=== PATIENT | female | born 1935 | race Caucasian/White ===

== ENCOUNTER 2024-08-20 12:51 | Inpatient (IN) | payer MEDICARE, SELFPAY ==
[2024-08-20] VITALS (28 sets, daily range): BP systolic 72–146; BP diastolic 40–76; PULSE 67–87; RESP 16–30; TEMP 36.3–36.7; O2SAT 93–100; BMI 28.5; BMI 27.8
--- NOTE | 2024-08-20 13:11 | EX.ED.DYSGE1 ---
HPI History of Present Illness Chief Complaint: Complaint Informant: patient and family Onset/Context/Timing Onset: Today Context: Gradual Onset Timing: Waxes and wanes Quality: Confused, difficulty talking Location: Generalized Worsened by: Nothing Relieved by: Nothing Narrative Narrative: Patient presents with confusion and recurrent urinary tract infections. Patient had an episode today where she had some difficulty talking. Daughter states that this was unusual for the patient. Daughter states the patient has been on several courses of antibiotics for frequent urinary tract infections. Daughter states that the patient was recently started on Macrobid 2 days ago. Daughter states that the patient has not been eating and drinking as much is normal. Daughter denies any fevers or chills. Daughter denies any vomiting. [facility] Medical History (Updated 08/20/24 @ 18:[address] Dewayne Thompson DO) Arthritis Osteoporosis Anemia Allergy/AdvReac Type Severity Reaction Status Date / Time No Known Allergies Allergy Verified 08/20/24 12:53 Surgical History (Updated 08/20/24 @ 15:[address] 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 Social History Smoking Status: Never smoker ROS ROS ED Constitutional Constitutional ED: Denies chills or fever(s) ENT ENT ED: Denies rhinorrhea or sore throat Cardiovascular Cardiovascular: Denies chest pain Respiratory/Chest Respiratory/Chest: Denies cough or dyspnea Gastrointestinal Gastrointestinal: Denies nausea or vomiting Musculoskeletal Musculoskeletal: Denies back pain or neck pain Neurologic Neurologic: Reports weakness; Denies headache(s) Allergic/Immunologic Allergic/Immunologic ED: Denies tongue swelling or urticaria EXAM Physical Exam Const Vital Signs: 08/20/24 12:53 08/20/24 12:56 08/20/24 14:56 Temperature 97.9 F 97.9 F 97.4 F L Temperature Source Oral Oral Temporal Pulse Rate 69 67 74 Respiratory Rate 18 16 18 Blood Pressure 141/76 H 141/76 H 114/60 Blood Pressure Mean 97 97 78 Pulse Ox 98 97 97 Oxygen Delivery Method Room Air Room Air Room Air 08/20/24 16:00 08/20/24 17:00 08/20/24 17:24 Temperature 98.1 F 97.6 F L Temperature Source Temporal Temporal Pulse Rate 75 81 79 Respiratory Rate 16 16 17 Blood Pressure 107/52 L 107/53 L 79/42 L Blood Pressure Mean 70 71 54 Pulse Ox 100 97 97 Oxygen Delivery Method Room Air Room Air Room Air 08/20/24 17:27 Temperature Temperature Source Pulse Rate 75 Respiratory Rate 17 Blood Pressure 92/40 L Blood Pressure Mean 57 Pulse Ox 97 Oxygen Delivery Method Room Air Positive well nourished and well developed General Appearance ED: well developed and NAD HEENT Reports moist mucous membranes Neck supple and no JVD Resp normal respiratory effort Auscultation: rales bilateral 1/3 way up Cardio regular rate and regular rhythm GI non-tender and non-distended Palpation: soft Neuro oriented x3, CN's II-XII intact bilaterally and no sensory deficits noted Sensorium / Orientation: alert Motor Exam: strength 5/5 throughout Psych mental status grossly normal MDM MDM MDM Narrative Medical decision making narrative: Differential diagnosis includes urinary tract infection, sepsis, congestive heart failure, pneumonia, cardiac dysrhythmia, cardiac ischemia, and viral illness. EKG will be obtained to assess for cardiac dysrhythmia and cardiac ischemia. Chest x-ray will be obtained to assess for pneumonia and congestive heart failure. CT scan of the brain will be obtained to assess for intracranial bleeding and stroke. CBC will be obtained to assess for leukocytosis and anemia. Basic metabolic profile will be obtained to assess for electrolyte abnormality and renal function. High-sensitivity troponin will be obtained to assess for cardiac ischemia. Serum lactate will be obtained to assess for sepsis. PT with INR and PTT will be obtained to assess for coagulopathy. BNP will be obtained to assess for congestive heart failure. Urinalysis will be obtained to assess for urinary tract infection. Blood cultures will be obtained to assess for sepsis. Urine culture will be obtained to assess for urinary tract infection. COVID-19, influenza, and RSV PCR will be obtained to assess for viral infection. Lab Data Attestation: I reviewed the patient's lab results. Lab results narrative: CBC was reviewed. There is a leukocytosis of 25.5. Hemoglobin was 8.3 and hematocrit was 26.2. Platelets were 500. Basic metabolic profile was reviewed. Creatinine was slightly elevated at 1.29. Sodium was slightly low at 129. PT was INR and PTT were reviewed. Pro time was 16.8 and INR is 1.4. PTT was 24.7. Serum lactate was reviewed and was normal at 1.2. Urinalysis was reviewed. There is turbid brown urine with specific arrival 1.010. There were positive nitrates. Leukocyte esterase was 500. Occult blood was 250. There were greater than 100 white blood cells and 5-10 red blood cells. There is 3+ bacteria. BNP was reviewed and was elevated at 311.4. COVID-19 PCR was reviewed and was negative. Influenza PCR was reviewed and was negative for influenza A and influenza B. RSV PCR was reviewed and was negative. Labs: Laboratory Results - last 24 hr 08/20/24 08/20/24 08/20/24 15:05 15:50 16:35 WBC 25.5 H RBC 2.92 L Hgb 8.3 L Hct 26.2 L MCV 89.7 MCH 28.4 MCHC 31.7 L RDW Std Deviation 48.0 H RDW Coeff of Tiffani 14.8 H Plt Count 500 H MPV 9.5 Immature Gran % (Auto) 0.900 Neut % (Auto) 94.9 H Lymph % (Auto) 1.8 L [place] % (Auto) 0.9 Eos % (Auto) 1.2 Baso % (Auto) 0.3 Absolute Neuts (auto) 24.2 H Absolute Lymphs (auto) 0.46 L Nucleated RBC % 0 Differential Comment Platelet Estimate MOD INC Hypochromasia 1+ Anisocytosis 1+ PT 16.8 H INR 1.4 APTT 24.7 Sodium 129 L Potassium 4.3 Chloride 99 Carbon Dioxide 23.0 Anion Gap 8 BUN 17 Creatinine 1.29 H Estim Creat Clear Calc 27.80 Est GFR (MDRD) Af Amer 50 L Est GFR (MDRD) Non-Af 41 L BUN/Creatinine Ratio 13.2 Glucose 93 Lactic Acid 1.2 Calcium 8.7 Troponin I High Sens 14 B-Natriuretic Peptide 311.4 H Urine Color Brown Urine Clarity Turbid Urine pH 6.0 Ur Specific [place] 1.010 Urine Protein 100 H Urine Glucose (UA) Normal Urine Ketones 5 H Urine Occult Blood 250 H Urine Nitrite Positive H Urine Bilirubin Negative Urine Urobilinogen 1 H Ur Leukocyte Esterase 500 H Urine RBC 5-10 SEEN Urine WBC >100 SEEN Ur Squamous Epith Cells 5-10 SEEN Ur Renal Epithelial Cell 0-5 SEEN Urine Bacteria 3+ Urine Mucus 0 SEEN Radiography Chest X-Ray - ED: 2 View, Read by ED Physician, Read by Radiologist and CHF Diagnostic Testing: Clinical Impression(s) from Imaging Studies Brain CT 08/20/24 14:02 IMPRESSION: Chronic involutional changes of the brain. Electronically Signed: Tim White MD at 15:35 EST , Chest X-Ray 08/20/24 15:20 IMPRESSION: Findings suggestive of a CHF with bibasilar atelectasis worse on the left side. Electronically Signed: Tim White MD at 15:35 EST , Wrist X-Ray 08/20/24 16:14 IMPRESSION: Degenerative changes. Possible old avulsion injury of the ulnar styloid. Electronically Signed: José Antonio Calero DO at 16:32 EST , PA and lateral chest x-ray was obtained. There are 2 views. On my independent interpretation, lung rivas show evidence of congestive heart failure with bibasilar atelectasis. There is normal cardiac silhouette. Bony thorax is normal. Radiologist also interpreted the x-ray and agrees. CT scan of the brain was obtained. There is no acute intracranial abnormality. There are chronic involutional changes noted. This was interpreted by the radiologist and was also independently reviewed by myself. X-rays of the left wrist were obtained. There are 3 views. On my independent interpretation, there are some degenerative changes. There is no acute fracture. There is a possible old avulsion injury of the ulnar styloid. Radiologist also interpreted the x-rays and agrees. EKG Initial EKG: Attestation: I personally reviewed and interpreted this EKG as follows: Interpretation: Sinus Rhythm (68) and No Acute Injury Pattern Comments: EKG was obtained. On my independent interpretation, it showed a normal sinus rhythm with a rate of 68. AL interval, QRS interval, and QTc intervals were all normal. [place] was normal. There are no acute ST or T wave changes. Prior EKG tracings: not available for review Prior: No Prior Management Discussion w/another healthcare provider: Hospitalist Treatment and Re-Evaluation :: Patient was given a dose of Lasix here. Patient was started on Rocephin. After the patient received Rocephin, her blood pressure dropped. This improves after placing the patient in Trendelenburg position. Because of the elevated BNP and congestive heart failure on chest x-ray, IV fluids were withheld at this time. Case was discussed with the hospitalist. She will admit the patient to ICU. Patient and family understood and were agreeable with the plan. All questions were answered. 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
--- NOTE | 2024-08-20 14:02 | CT_ITS ---
STUDY: CT BRAIN WITHOUT CONTRAST REASON FOR EXAM: Female, 89 years old. Confusion RADIATION DOSAGE (If Supplied By Facility): CTDIvol = ( 44.99 ) mGy, DLP = ( 745.49 ) mGycm TECHNIQUE: Transaxial CT imaging of the brain was performed without administration of intravenous contrast material. Individualized dose optimization techniques were used for this CT. COMPARISON: No relevant priors. FINDINGS: Normal soft tissue structures. Normal calvarium. There is mild cerebral atrophy with widening of the extra-axial spaces and ventricular dilatation. There are areas of decreased attenuation within the white matter tracts of the supratentorial brain, consistent with microvascular disease changes. Normal basal ganglia and thalami. Normal brainstem. Normal cerebellum. There is no intracranial hemorrhage. There are no findings of an acute ischemic infarction. Minimal degree of mucosal thickening of the anterior aspect of the right ethmoid sinus. CT/Brain/Head without Contrast IMPRESSION: Chronic involutional changes of the brain. Electronically Signed: Tim White MD at 15:35 EST ,
--- NOTE | 2024-08-20 14:05 | EKG12_ITS ---
Test Reason : Blood Pressure : */* mmHG Vent. Rate : 68 BPM Atrial Rate : 68 BPM P-R Int : 138 ms QRS Dur : 84 ms QT Int : 430 ms P-R-T Axes : 23 0 9 degrees QTcB Int : 457 ms Normal sinus rhythm Normal ECG Confirmed by EMMANUEL RIVERA, SONDRA ([id number]), editor trade journal CARMELITA ROJAS ([id number]) on 08/21/2024 8:18:16 AM Referred By: Confirmed By: SONDRA BENITEZ MD
--- NOTE | 2024-08-20 15:20 | RAD_ITS ---
STUDY: X-RAY CHEST REASON FOR EXAM: Female, 89 years old. Dyspnea TECHNIQUE: AP and lateral views of the chest. COMPARISON: None. FINDINGS: EKG electrodes are seen. Findings suggest thoracic congestion and CHF with bibasilar atelectasis more prominent at the left lung base. Blunting of both costophrenic angles. There is mild cardiac enlargement. Normal mediastinum and [place]. Normal visualized pulmonary arteries. There is atherosclerotic tortuosity of the aortic arch and descending thoracic aorta. There are diffuse degenerative changes of the visualized thoracic spine. Status post right shoulder replacement. Osteoarthritis of the left shoulder. There is no demonstrated abnormality of the visualized soft tissue structures of the upper abdomen. RAD/Chest PA and Lateral IMPRESSION: Findings suggestive of a CHF with bibasilar atelectasis worse on the left side. Electronically Signed: Tim White MD at 15:35 EST ,
[2024-08-20 15:25] LABS: International Normalized Ratio 1.4; Prothrombin Time (Protime)PT. 16.8 SECONDS (11.7-14.9)
[2024-08-20 15:26] LABS: Partial Thromboplast Time 24.7 Seconds (24.1-36.2)
[2024-08-20 15:34] LABS: Anion Gap 8 (5-15); BUN 17 mg/dL (7-18); BUN/Creat Ratio 13.2 RATIO (10-20); Calcium,Total 8.7 mg/dL (8.5-10.1); Chloride 99 mmol/L (98-107); Creatinine, Serum 1.29 mg/dL (0.55-1.02); EST Glomerular Filtration Rate 41 mL/min (>60); Est Glom Filt Rate - Afr Amer 50 mL/min (>60); Glucose 93 mg/dL (74-106); Potassium 4.3 mmol/L (3.5-5.1); Sodium Level 129 mmol/L (136-145); Troponin-I HS 14 pg/mL (3.0-54.0)
[2024-08-20 15:56] LABS: Mucous, Urine 0 SEEN /hpf (<or=2+)
[2024-08-20 16:04] LABS: Lactic Acid 1.2 mmol/L (0.4-1.9)
--- NOTE | 2024-08-20 16:08 | ED.RN ---
Dr. Thompson notified that family requests X-ray of left wrist. We were only able to place a indwelling oh catheter d/t unsuccessful straight cath attempts.
--- NOTE | 2024-08-20 16:08 | ED.RN ---
lab coming to draw 2nd set of blood cultures
--- NOTE | 2024-08-20 16:14 | RAD_ITS ---
INDICATION: Injury/Pain EXAMINATION/TECHNIQUE: X-RAY - LEFT XR Wrist Min 3 Views 3 VIEWS COMPARISON: FINDINGS: SOFT TISSUES: No soft tissue swelling or gas. Chondrocalcinosis distal to the ulna. No radiopaque foreign body. Vascular calcifications. BONES/JOINTS: No acute fracture or subluxation.. Possible old avulsion of the ulnar styloid. Degenerative changes with joint space narrowing at the first carpal metacarpal articulation.. No sclerotic or destructive changes observed. RAD/Wrist min 3 Views IMPRESSION: Degenerative changes. Possible old avulsion injury of the ulnar styloid. Electronically Signed: José Antonio Calero DO at 16:32 EST Reading Location ID and State: [facility] / [place] Tel [phone], Service support ,
[2024-08-20] MEDS: Furosemide 40 MG/4 ML Vial IV (16:23)
[2024-08-20 16:35] LABS: Color, Urine Brown (Yellow); Glucose, Dipstick Normal (Normal); Ketone-Dipstick 5 mg/dl (Negative); Leukocyte Esterase-Dipstick 500 /ul (Negative); Nitrite-Dipstick Positive (Negative); Occult Blood-Urine 250 /ul (Negative); Protein-Dipstick 100 mg/dl (Negative); Urine Bilirubin Dipstick Negative (Negative); Urine Clarity Turbid (Clear); Urine Urobilinogen 1 mg/dl (Normal)
[2024-08-20 16:57] LABS: Anisocytosis 1+; Hypochromasia 1+; Platelet Estimate MOD INC (ADEQ)
[2024-08-20 16:57] LABS: White Blood Cells >100 SEEN /hpf (0-5)
[2024-08-20 16:58] LABS: Bacteria 3+ /hpf (None Seen)
[2024-08-20 16:59] LABS: Red Blood Cells-Urine 5-10 SEEN /hpf (0-5); Renal Epithelial Cells 0-5 SEEN /hpf (0-5); Squamous Epithelial Cells - UA 5-10 SEEN /hpf (5-10)
[2024-08-20 17:09] LABS: Absolute Lymphocyte Count 0.46 X10^3/uL (0.83-4.51); Absolute Neutrophil Count 24.2 X10^3/uL (2.0-7.7); Basophil# 0.07 X10^3/uL; Basophil% 0.3 % (0-1); Eosinophils% 1.2 % (0-5); Hematocrit 26.2 % (37-47); Hemoglobin 8.3 g/dL (12.0-15.0); Lymphocyte # 0.46 X10^3/ul (0.83-4.51); Lymphocyte % 1.8 % (19-41); Mean Corp Hgb Conc 31.7 g/dL (32-36); Mean Corpuscular Hgb 28.4 pg (27.0-32.0); Mean Corpuscular Volume 89.7 fL (81-99); Mean Platelet Vol. 9.5 fl (6.2-12.0); Monocyte# 0.23 X10^3/uL; Monocyte% 0.9 % (0-10); NRBC Flagged by Analyzer 0 % (0-5); Neutrophil # 24.18 X10^3/uL (2.7-7.7); Neutrophil % 94.9 % (47-70); POSITIVE COUNT YES; POSITIVE DIFFERENTIAL YES; Platelet Count 500 K/mm3 (150-450); RBC Distribution Width CV 14.8 % (11.6-14.6); Red Blood Count 2.92 M/mm3 (4.2-5.4); White Blood Count 25.5 K/mm3 (4.4-11.0)
[2024-08-20 17:10] LABS: Differential Indicated SCAN CRITERIA MET
[2024-08-20] MEDS: Ceftriaxone 1 GM/50 ML BAG IV (17:22)
--- NOTE | 2024-08-20 17:26 | ED.RN ---
place pt in partial trendelberg due to low bp. bp 92/40 after reposition
--- NOTE | 2024-08-20 17:42 | CT_ITS ---
STUDY: CT ABDOMEN AND PELVIS WITHOUT CONTRAST REASON FOR EXAM: Female, 89 years old. sepsis with uti RADIATION DOSAGE (If Supplied By Facility): CTDIvol = ( 14.74 ) mGy, DLP = ( 740.21 ) mGycm TECHNIQUE: Transaxial images were obtained from the dome of the diaphragm to the symphysis pubis without oral contrast, and without intravenous contrast. Sagittal and coronal images were reconstructed. Individualized dose optimization techniques were used for this CT. COMPARISON: None. FINDINGS: Mild left pleural effusion. Bibasilar interstitial prominence. The visualized portions of the heart are within normal limits. Normal liver. No visualization of the gallbladder. Mild prominence of the extrahepatic biliary system. Normal spleen. Normal pancreas. Normal bilateral adrenal glands. Normal right kidney. Normal left kidney. Hiatal hernia. Normal small intestine. Diverticulosis of the colon. There is wall thickening at the distal rectosigmoid colon with adjacent mesenteric edema/fluid and extraluminal collection suspected to the right of the rectum measuring 5.4 x 2.8 cm suggesting an abscess. The appendix is visualized and appears normal. Calcified abdominal aorta. Normal inferior vena cava. Normal retroperitoneum. Merrill catheter in the urinary bladder. : Olar-ureteral with the right ureter and colovesical fistula cannot be excluded. Mild presacral edema. Normal abdominal wall. Degenerative vertebral changes and scoliosis. Surgical fusion of L3-L5. L1 compression fracture. CT/Abdomen/Pelvis without Cont IMPRESSION: Hiatal hernia. Diverticulosis of the colon. There is wall thickening at the distal rectosigmoid colon with adjacent mesenteric edema/fluid and extraluminal collection suspected to the right of the rectum measuring 5.4 x 2.8 cm suggesting an abscess. Olar-ureteral with the right ureter and colovesical fistula cannot be excluded. Mild left pleural effusion. Bibasilar interstitial prominence. Electronically Signed: José Antonio Calero DO at 18:30 EST ,
[2024-08-20 17:43] LABS: BNP,B-Type NATRIURETIC PEPTIDE 311.4 pg/mL (0-100)
--- NOTE | 2024-08-20 17:51 | PCM.HP.STD ---
HPI - General General Date of Admission: 08/20/24 Date of Service: 08/20/24 Chief Complaint: Altered mental status HPI Narrative PEGGY JO, is a 89 F who presented to the emergency department [facility] on 08/20/2024 due to altered mentation. Patient is currently a resident at [facility] where she is currently residing. She has been having issues with recurrent urinary tract infections and was just started on Macrobid a couple days prior to presentation. Today her family noted that she was having some issues talking and seemed a bit confused which is unusual for her. Typically at baseline she is alert and oriented x 3. Family reported that she is not been eating and drinking as much is typical. Daughter stated she did not have any known fevers or chills and had not had any nausea vomiting or diarrhea. Patient is a DNR CCA with no intubation. She states her goal is to live until her grandson gets home from the on September 15 and after that would consider hospice at but at this time would like to pursue as aggressive of medical therapy as her CODE STATUS allows. Her grandson is Dr. Elder Bowen. Vital signs on presentation showed a temperature of 97.9, heart rate 69, blood pressure was initially 141/76 however after antibiotics her blood pressure dropped to 79/42, pulse ox is 98% on room air. I have no baseline labs previous for comparison. CBC showed a white count of 25.5 with a left shift having a 94.9% neutrophilia. Hemoglobin was 8.3, platelet count was 500,000, and coags showed a mildly elevated INR at 1.4, PTT of 24.7 and a PTT of 16.8. Chemistry panel showed a mild hyponatremia with a sodium of 129, creatinine was 1.29 and troponin was 14. BNP was 311.4. Urine was turbid and positive for nitrites and leuk esterase with greater than 100 white cells per high-power field and 3+ bacteria. CT of the brain showed only chronic volitional changes. Chest x-ray was suggestive of CHF or bilateral atelectasis left greater than right. At the time of admission I recommended a CT of the abdomen pelvis be pursued and this was performed stat however pending at the time of her being admitted to the intensive care unit. [facility] Medical History Arthritis Osteoporosis Anemia Home Medications ?Medication ?Instructions ?Recorded ?Last Taken ?Type acetaminophen 500 mg tablet 1,000 mg PO Q8H PRN PRN pain 1-5 08/20/24 Unknown History bisacodyl 10 mg rectal suppository 10 mg AK DAILY PRN constipation 08/20/24 Unknown History calcium 600 mg (as 1 tab PO BID health maintenance 08/20/24 Unknown History carbonate)-vitamin D3 5 mcg (200 unit) tablet (Calcium 600 + D(3)) cholecalciferol (vitamin D3) 25 25 mcg PO DAILY osteoporosis 08/20/24 Unknown History mcg (1,000 unit) tablet (Vitamin D3) clonazepam 0.5 mg tablet (Klonopin) 0.5 mg PO TID PRN anxiety 08/20/24 Unknown History cranberry fruit 450 mg tablet 450 mg PO DAILY urinary health 08/20/24 Unknown History (cranberry) escitalopram oxalate 5 mg tablet 5 mg PO DAILY 08/20/24 Unknown History (Lexapro) fenofibrate micronized 200 mg 200 mg PO DAILY 08/20/24 Unknown History capsule folic acid 1 mg tablet 1 mg PO DAILY anemia 08/20/24 Unknown History gabapentin 600 mg tablet 600 mg PO BID 08/20/24 Unknown History nitrofurantoin 100 mg PO BID UTI 08/20/24 Unknown History monohydrate/macrocrystals 100 mg capsule (Macrobid) omeprazole 20 mg capsule,delayed 20 mg PO DAILY 08/20/24 Unknown History release oxycodone 5 mg tablet 5 mg PO Q8H PRN PRN mild to 08/20/24 Unknown History moderate pain sennosides 8.6 mg-docusate sodium 1 tab-cap PO BID PRN constipation 08/20/24 Unknown History 50 mg tablet (Senna-Time S) trazodone 50 mg tablet 100 mg PO QHS insomnia 08/20/24 Unknown History Allergy/AdvReac Type Severity Reaction Status Date / Time No Known Allergies Allergy Verified 08/20/24 12:53 unable to obtain Surgical History 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 Silke Bettencourt DO) housing: long-term Smoking Status: Never smoker alcohol intake: never substance use type: does not use ROS Constitutional Constitutional: Reports fatigue and malaise; Denies anorexia, change in weight, chills, fever(s), night sweats, weakness or other Eyes Eyes: Denies blurry vision, change in eye color, change in vision, discharge from eye(s), double vision, erythema, eye pain, loss of vision or other ENT HEENT: Reports abnormal hearing and hearing loss; Denies dysphagia, ear pain, epistaxis, headache(s), nasal congestion, nasal discharge, post nasal drip, sinus pressure, sore throat or other Cardiovascular Cardiovascular: Denies chest pain, claudication, dyspnea on exertion, edema, lightheadedness, orthopnea, palpitations, paroxysmal nocturnal dyspnea, rapid heart rate, syncope or other Respiratory/Chest Respiratory/Chest: Denies cough, dyspnea, excessive phlegm production, hemoptysis, productive cough, shortness of breath at rest, shortness of breath with exertion, wheezing or other Gastrointestinal Gastrointestinal: Denies abdominal pain, coffee ground emesis, constipation, diarrhea, dyspepsia, hematemesis, hematochezia, loose stools, melena, nausea, vomiting or other Genitourinary Genitourinary: Reports dysuria and urinary frequency; Denies burning urination, difficulty urinating, hematuria, nocturia, urinary hesitancy, urinary incontinence, urinary urgency or other Musculoskeletal Musculoskeletal: Reports back pain and neck pain; Denies arthralgias, joint pain, joint stiffness, joint swelling, myalgias or other Neurologic Neurologic: Denies abnormal gait, abnormal speech, confusion, disequilibrium, dizziness, focal weakness, headache(s), numbness, paresthesias, seizure-like activity, seizures, syncope, tingling, tremor(s) or other Psychiatric Psychiatric: Reports anxiety and depression; Denies homicidal ideation, suicidal ideation or other Endocrine Endocrinology: Denies change in body appearance, cold intolerance, excessive sweating, heat intolerance, polydipsia, polyuria or other Hematologic/Lymphatic Hematologic/Lymphatic: Denies anemia, easy bleeding, easy bruising, lymphadenopathy or other Allergic/Immunologic Allergic/Immunologic: Denies rhinitis, hives, eczemia, asthma or other Vital Signs Vital Signs Vital Signs: 08/20/24 12:53 08/20/24 12:56 08/20/24 14:56 Temperature 97.9 F 97.9 F 97.4 F L Temperature Source Oral Oral Temporal Pulse Rate 69 67 74 Respiratory Rate 18 16 18 Blood Pressure 141/76 H 141/76 H 114/60 Blood Pressure Mean 97 97 78 Pulse Ox 98 97 97 Oxygen Delivery Method Room Air Room Air Room Air 08/20/24 16:00 08/20/24 17:00 08/20/24 17:24 Temperature 98.1 F 97.6 F L Temperature Source Temporal Temporal Pulse Rate 75 81 79 Respiratory Rate 16 16 17 Blood Pressure 107/52 L 107/53 L 79/42 L Blood Pressure Mean 70 71 54 Pulse Ox 100 97 97 Oxygen Delivery Method Room Air Room Air Room Air 08/20/24 17:27 Temperature Temperature Source Pulse Rate 75 Respiratory Rate 17 Blood Pressure 92/40 L Blood Pressure Mean 57 Pulse Ox 97 Oxygen Delivery Method Room Air Weight Weight: 70.9 kg Body Mass Index (BMI) 28.5 Physical Exam Const alert, no apparent distress and well nourished; Negative for average body habitus or healthy appearing Constitutional Narrative: Elderly, debilitated, white female, lying in bed oriented to self and place but not time consistently, appears ill General Appearance: cooperative HEENT normocephalic and head/scalp atraumatic HEENT Narrative: Dentition is poor, mucous membranes are dry, Mallampati is 2, no thrush, large seborrheic keratosis on nose Eyes PERRL Resp normal respiratory effort, no retractions, no use of accessory muscles and clear to auscultation bilaterally Auscultation: crackles bilateral (B crackles); Negative for rhonchi or wheezes Cardio regular rate, regular rhythm, S1 normal heart sound, S2 normal heart sound, no murmurs, no rub, no gallops and no clicks GI normal to inspection, nondistended, normoactive bowel sounds, soft to palpation and non-tender Extremity Extremity Narrative: Pedal pulses 2+, Radial pulses 2+, no cyanosis/clubbing Neuro moves all extremities and no focal motor deficits Sensorium / Orientation: awake, alert, oriented to person and oriented to place Speech: speech normal Psych affect normal Psych Narrative: calm and appears comfortable Results Lab / Micro Data 08/20/24 16:35 08/20/24 15:05 Labs: Laboratory Results - last 24 hr 08/20/24 15:05: PT 16.8 H, INR 1.4, APTT 24.7, Sodium 129 L, Potassium 4.3, Chloride 99, Carbon Dioxide 23.0, Anion Gap 8, BUN 17, Creatinine 1.29 H, Estim Creat Clear Calc 27.80, Est GFR (MDRD) Af Amer 50 L, Est GFR (MDRD) Non-Af 41 L, BUN/Creatinine Ratio 13.2, Glucose 93, Lactic Acid 1.2, Calcium 8.7, Troponin I High Sens 14 08/20/24 15:50: Urine Color Brown, Urine Clarity Turbid, Urine pH 6.0, Ur Specific Hamilton 1.010, Urine Protein 100 H, Urine Glucose (UA) Normal, Urine Ketones 5 H, Urine Occult Blood 250 H, Urine Nitrite Positive H, Urine Bilirubin Negative, Urine Urobilinogen 1 H, Ur Leukocyte Esterase 500 H, Urine RBC 5-10 SEEN, Urine WBC >100 SEEN, Ur Squamous Epith Cells 5-10 SEEN, Ur Renal Epithelial Cell 0-5 SEEN, Urine Bacteria 3+, Urine Mucus 0 SEEN 08/20/24 16:35: WBC 25.5 H, RBC 2.92 L, Hgb 8.3 L, Hct 26.2 L, MCV 89.7, MCH 28.4, MCHC 31.7 L, RDW Std Deviation 48.0 H, RDW Coeff of Tiffani 14.8 H, Plt Count 500 H, MPV 9.5, Immature Gran % (Auto) 0.900, Neut % (Auto) 94.9 H, Lymph % (Auto) 1.8 L, Jasper % (Auto) 0.9, Eos % (Auto) 1.2, Baso % (Auto) 0.3, Absolute Neuts (auto) 24.2 H, Absolute Lymphs (auto) 0.46 L, Nucleated RBC % 0, Differential Comment , Platelet Estimate MOD INC, Hypochromasia 1+, Anisocytosis 1+, B-Natriuretic Peptide 311.4 H Micro: Microbiology 08/20/24 14:21 Mucosa - Nose SARS-CoV-2, Influenza & RSV (PCR) - Final Imaging Radiology Impression Brain CT 08/20/24 14:02 IMPRESSION: Chronic involutional changes of the brain. Electronically Signed: Tim White MD at 15:35 EST , Chest X-Ray 08/20/24 15:20 IMPRESSION: Findings suggestive of a CHF with bibasilar atelectasis worse on the left side. Electronically Signed: Tim White MD at 15:35 EST , Wrist X-Ray 08/20/24 16:14 IMPRESSION: Degenerative changes. Possible old avulsion injury of the ulnar styloid. Electronically Signed: José Antonio Calero DO at 16:32 EST , Assessment & Plan Assessment/Plan (1) Toxic metabolic encephalopathy: (2) Elevated brain natriuretic peptide (BNP) level: (3) Elevated serum creatinine: (4) Leukocytosis: (5) Anemia: (6) Thrombocytosis: (7) Abnormal urinalysis: (8) Septic shock: PLAN: Plan Septic shock secondary to urinary tract infection -Patient had refractory hypotension to fluid resuscitation at 30 cc/kg body weight (2,500) -Levophed initiated at 5 mcg/min -Right internal jugular catheter placed for administration of pressors and antibiotics under sterile procedure -Blood and urine cultures are pending -CT of the abdomen pelvis without contrast showed wall thickening at the distal rectosigmoid colon with adjacent mesenteric edema and fluid with extraluminal collection to the right of the rectum measuring 5.4 x 2.8 cm suggestive of an abscess along with potential Coloureteral/colovesical fistula, mild left pleural effusion and bibasilar interstitial prominence -Discussed case with general surgery here and they feel that is anticipated drain should be placed -No IR available here so will transfer to tertiary center--> discussed with family and they prefer [facility] -Will continue broad-spectrum antibiotics with Zosyn -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 as her only goal is to live until September 15 when her grandson gets home from the but source control needs to be pursued at this time as she is not quite ready for hospice -Critical care medicine/pulmonary medicine was consulted in case patient does not obtain a bed today Toxic/metabolic encephalopathy -Mild confusion per family however if she does seem better per family after getting to the emergency department and having some fluids -Likely related to the above -CT of the brain shows no acute findings -Monitor clinically Leukocytosis -Significant with a white count of 25.5 on presentation -Continue IV antibiotics next-cultures pending as above -Repeat CBC in a.m. Abnormal urinalysis -Highly suspect UTI -Urine looks purulent -Antibiotics as above Thrombocytosis -Highly suspect acute phase reactant -Should improve with source control and antibiotic therapy Elevated serum creatinine -Baseline is unknown -Creatinine on presentation was 1.29 -Patient was treated with IV fluids as noted above -Repeat lab in a.m. -Avoid nephrotoxins as able -With age actual creatinine clearance is quite low Hyponatremia -129 on presentation -baseline is unknown -Patient does appear to be volume depleted -No further workup at this time but if remains persistent may need to pursue further hyponatremia workup Elevated BNP -Does not appear to be in acute heart failure however bases do have crackles--> the patient remained stable on room air even after fluid administration -Suspect related to sepsis -Will check echocardiogram -Would avoid diuretics due to hypotension at this time -Bases of lungs on CT of the abdomen shows small right pleural effusion which is minimal on my review and some atelectasis/fibrosis appearing changes Recurrent UTI -See above Anemia -Documented history of anemia however baseline unclear -Current hemoglobin is 8.3 -Will monitor and expect some drop with hemodilution with aggressive IV fluid administration for volume resuscitation -Repeat CBC in a.m. GERD -Continue PPI Hyperlipidemia -Hold fenofibrate -Would likely discontinue at discharge given overall goals of care long-term Osteoarthritis -As needed Tylenol available Neuropathy -Hold gabapentin for now with renal dysfunction and altered mentation Anxiety/depression/insomnia -Continue Lexapro -Hold as needed Klonopin -Okay for as needed trazodone DVT prophylaxis -Subcu heparin Q8 CODE STATUS -DNR CCA with no intubation Findings on CT scan were discussed with Dr. Bowen (her grandson) and her son (POA) and they desire transfer to [facility]. Discussed case with transfer center and awaiting callback from MICU attending--> Dr. Escoabr. Images were pushed to [facility]. Critical care time greater than 36 minutes without procedures Sepsis Attestation Sepsis Alert: Yes Sepsis Attestation: Agree w/Sepsis Date exam was performed: 08/20/24 Time exam was performed: 17:52 Possible Source of Sepsis: Genitourinary Sepsis Organ Dysfunction Criteria Present: SBP < 90 mmHg or MAP < 65 mmHg and New/Unexplained change in mental status Supportive Findings: Per Sep 1 guidelines pt meets SIRS criteria and source Fluid Resuscitation Fluid resuscitation indicated?: Yes Fluid Resuscitation ordered: 30 ml/kg fluid bolus ordered Amount of fluid ordered: 2,500 Sepsis Note Date exam was performed: 08/20/24 Time exam was performed: 22:32 Sepsis Attestation: Sepsis re-evaluation was performed Response to fluids: Vasopressors started Charges/Coding Procedures Hospitalists Procedures: 37224 Critical Care 1st Hr
[2024-08-20] MEDS: 0.9% Normal Saline (1000mL) 1,000 ML 1500 ML IV (18:30)
--- NOTE | 2024-08-20 19:40 | CASEMGMT ---
Social Work Reason for consult: ICU admission/from residential Referral source: ED registration Notified by ED registration staff that patient is being admitted to ICU. Met with patient, son Konstantin, and a close family friend in the ED. Introduced to self and social work role. Patient talked minimally, reporting to feel better now that not being poked and prodded. Konstantin shared that patient has been at [facility] for about 3 weeks now. Previously had been living alone in own home with family checking in on patient, and looking after as able. Patient developed some confusion and was taken to [place] for treatment then admitted to [place]. Patient was then placed at [facility]. Patient's [id number] Twyla (Konstantin's ) is a nurse at [facility], so is able to look after patient there. The plan is for patient to return to [facility] when medically stable. Son declines any type of residential list, as wants patient to return where Twyla works. This tech writer expressed understanding and validation of comfort in knowing that family can be close by and look after the patient frequently. terminologist plan is to remain at [facility]. Family is working on Medicaid for this patient, though Konstantin believes patient is reportedly still receiving skilled care under Medicare benefit. Konstantin reports patient's grandson is to be home for a visit from the [employer] around [place], and it has been patient's goal to hang on until that time, in order to see her grandson at least one more time. Supportive listening and encouragement given. Konstantin reports to be the POAHC for patient and that patient has a DNR, which believes was sent from the residential. Konstantin reports patient is , had 5 children, with Konstantin being the only child still living. If there is no POAHC able to be produced, Konstantin would be next in line for decision making. Plan: SW to follow and assist as indicated. Anticipate return to [facility] and rehab, skilled level of care. -JAJA Lemos
[2024-08-20] MEDS: 0.9% Normal Saline (1000mL) 1,000 ML 999 ML IV (20:04)
--- NOTE | 2024-08-20 20:12 | NURSING ---
2500 mL sepsis fluids ordered total per Dr. Bettencourt. Orders duplicated accidentally in transfer orders. 1500 mL given in ED, one more liter started after arrival to unit to fulfill the total 2.5 L.
[2024-08-20] MEDS: Norepinephrine 8 MG in 0.9% Normal Saline (250mL Bag) 242 ML 9.4 MG CONT INF (20:53)
[2024-08-20] MEDS: Piperacil/Tazobactam 3.375 GM in 0.9% Normal Saline (50mL MB+) 50 ML IV (21:25)
--- NOTE | 2024-08-20 22:12 | PCM.HOSP.N ---
Hospitalist Note Central Venous Catheter Indication: Hypotension secondary to septic shock Consent was obtained from: Patient and family A time-out was completed verifying correct patient, procedure, site, positioning, and special equipment if applicable. The patient was placed in a dependent position appropriate for central line placement based on the vein to be cannulated. The patient's right neck was prepped and draped in a sterile fashion. 1% lidocaine was used to anesthetize the surrounding skin area. A triple-lumen catheter was introduced into the right internal jugular vein using the Seldinger technique and under ultrasound guidance. The catheter was threaded smoothly over the guidewire and appropriate blood return was obtained. Each lumen of the catheter was evacuated of air and flushed with sterile saline. The catheter was then sutured in place to the skin and a sterile dressing applied. Chest x-ray to confirm appropriate positioning is pending. ULTRASOUND GUIDANCE STATEMENT (Vascular Access): I performed ultrasound image acquisition and interpretation for needle placement during the procedure. The vessel was identified and found to be free of thrombosis by compression technique. A safe point of entry was marked at the skin in an angle for axis was determined. The needle was guided by obtaining free-flowing fluid and by real-time visualization. Procedures Hospitalists Procedures: 20619 US Guide Vascular Access
[2024-08-20] MEDS: Heparin Injection (Vial) 5,000 UNIT/ML VIAL 5000 UNIT SC (22:15)
[2024-08-20] MEDS: traZODone 100 MG Tablet PO (22:15)
--- NOTE | 2024-08-20 22:15 | RAD_ITS ---
INDICATION: line placement EXAMINATION/TECHNIQUE: X-RAY - XR Chest 1 View COMPARISON: FINDINGS: LINES/DEVICES: Right venous line with tip at the right atrial level. LUNGS: Bibasilar infiltrates and mild effusions.. No pneumothorax. MEDIASTINUM AND CARDIOVASCULAR STRUCTURES: Cardiac silhouette not enlarged. Central airways and mediastinal contour are unremarkable. BONES AND SOFT TISSUES: There is a right shoulder prosthesis. Degenerative changes with deformity of the left shoulder. Degenerative vertebral changes. Hiatal hernia. RAD/CXR for Line Placement IMPRESSION: Bibasilar infiltrates and mild effusions.. Hiatal hernia. Electronically Signed: José Antonio Calero DO at 23:54 EST Reading Location ID and State: [facility] / [place] Tel [phone], Service support ,
--- NOTE | 2024-08-20 22:32 | NURSING ---
Dr. Bettencourt at bedside to place central line. Pt gave consent and signed form. Left IJ triple lumen placed. Chest xray ordered.
--- NOTE | 2024-08-20 22:48 | EX.PCM.CON.S ---
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 Additionally, adjacent to the rectum there is a 5 cm pelvic abscess. Patient presents with evidence of septic shock now requiring initiation of vasopressors to support her blood pressure. Given patient's frail state and advanced age I do not believe patient is a surgical candidate and recommended strong consideration of conservative measures for obtaining source control; specifically cited my review of the CT imaging which shows a 5 cm pelvic abscess that would appear to be accessible from a transgluteal approach and a window between the coccyx and the inferior gluteal artery. This impression was communicated to hospitalist service and they have sought urgent transfer to a tertiary facility with IR capabilities as our interventional radiologist is due to be out of the hospital tomorrow. It is reported that patient was accepted in transfer is pending. Otherwise agree with conservative management measures already in place including administration of IV antibiotic therapy. George Dozier MD General Surgery Endocrine Surgery Pager: [facility] [address] [place] [address], [facility], [address] [place] [address] Office: 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 Patient is evaluated without any family around and is a poor historian, but review of the EHR suggest that her presentation was based on some altered mental status. I have been consulted to evaluate patient for follow-up of ER investigation CT imaging that showed evidence of a colovesical fistula as well as a 5 cm pelvic abscess adjacent to the rectum to its right. It is also reported that patient has had sagging blood pressures today and is required central venous access for initiation of vasopressor therapy. [facility], LAT[facility] Medical History (Updated 08/20/24 @ 22:[address] George Dozier MD) Arthritis Osteoporosis Anemia Home Medications ?Medication ?Instructions ?Recorded ?Last Taken ?Type acetaminophen 500 mg tablet 1,000 mg PO Q8H PRN PRN pain 1-5 11/19/24 Unknown History bisacodyl 10 mg rectal suppository 10 mg AR DAILY PRN constipation 08/20/24 Unknown History calcium 600 mg (as 1 tab PO BID health maintenance 08/20/24 Unknown History carbonate)-vitamin D3 5 mcg (200 unit) tablet (Calcium 600 + D(3)) cholecalciferol (vitamin D3) 25 25 mcg PO DAILY osteoporosis 08/20/24 Unknown History mcg (1,000 unit) tablet (Vitamin D3) clonazepam 0.5 mg tablet (Klonopin) 0.5 mg PO TID PRN anxiety 08/20/24 Unknown History cranberry fruit 450 mg tablet 450 mg PO DAILY urinary health 08/20/24 Unknown History (cranberry) escitalopram oxalate 5 mg tablet 5 mg PO DAILY 08/20/24 Unknown History (Lexapro) fenofibrate micronized 200 mg 200 mg PO DAILY 08/20/24 Unknown History capsule folic acid 1 mg tablet 1 mg PO DAILY anemia 08/20/24 Unknown History gabapentin 600 mg tablet 600 mg PO BID 08/20/24 Unknown History nitrofurantoin 100 mg PO BID UTI 08/20/24 Unknown History monohydrate/macrocrystals 100 mg capsule (Macrobid) omeprazole 20 mg capsule,delayed 20 mg PO DAILY 08/20/24 Unknown History release oxycodone 5 mg tablet 5 mg PO Q8H PRN PRN mild to 08/20/24 Unknown History moderate pain sennosides 8.6 mg-docusate sodium 1 tab-cap PO BID PRN constipation 08/20/24 Unknown History 50 mg tablet (Senna-Time S) trazodone 50 mg tablet 100 mg PO QHS insomnia 08/20/24 Unknown History Allergy/AdvReac Type Severity Reaction Status Date / Time No Known Allergies Allergy Verified 08/20/24 12:53 Surgical History (Updated 08/20/24 @ 15:[address] 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 She does repeatedly make mention of poking a hole in it but does not directly answer questions despite rephrasing and repeating General Appearance: Negative for cooperative Orientation / Consciousness: confused Resp normal respiratory effort GI GI Narrative: Nondistended, soft, no apparent tenderness with palpation of any abdominal quadrant Bladder / Kidney Exam: catheter in place urethral (With brown discoloration) Lab / Micro Data 08/20/24 16:35 08/20/24 15:05 Labs: Laboratory Results - last 24 hr 08/20/24 15:05: PT 16.8 H, INR 1.4, APTT 24.7, Sodium 129 L, Potassium 4.3, Chloride 99, Carbon Dioxide 23.0, Anion Gap 8, BUN 17, Creatinine 1.29 H, Estim Creat Clear Calc 27.80, Est GFR (MDRD) Af Amer 50 L, Est GFR (MDRD) Non-Af 41 L, BUN/Creatinine Ratio 13.2, Glucose 93, Lactic Acid 1.2, Calcium 8.7, Troponin I High Sens 14 08/20/24 15:50: Urine Color Brown, Urine Clarity Turbid, Urine pH 6.0, Ur Specific [place] 1.010, Urine Protein 100 H, Urine Glucose (UA) Normal, Urine Ketones 5 H, Urine Occult Blood 250 H, Urine Nitrite Positive H, Urine Bilirubin Negative, Urine Urobilinogen 1 H, Ur Leukocyte Esterase 500 H, Urine RBC 5-10 SEEN, Urine WBC >100 SEEN, Ur Squamous Epith Cells 5-10 SEEN, Ur Renal Epithelial Cell 0-5 SEEN, Urine Bacteria 3+, Urine Mucus 0 SEEN 08/20/24 16:35: WBC 25.5 H, RBC 2.92 L, Hgb 8.3 L, Hct 26.2 L, MCV 89.7, MCH 28.4, MCHC 31.7 L, RDW Std Deviation 48.0 H, RDW Coeff of Tiffani 14.8 H, Plt Count 500 H, MPV 9.5, Immature Gran % (Auto) 0.900, Neut % (Auto) 94.9 H, Lymph % (Auto) 1.8 L, [place] % (Auto) 0.9, Eos % (Auto) 1.2, Baso % (Auto) 0.3, Absolute Neuts (auto) 24.2 H, Absolute Lymphs (auto) 0.46 L, Nucleated RBC % 0, Differential Comment , Platelet Estimate MOD INC, Hypochromasia 1+, Anisocytosis 1+, B-Natriuretic Peptide 311.4 H Micro: Microbiology 08/20/24 14:21 Mucosa - Nose SARS-CoV-2, Influenza & RSV (PCR) - Final Imaging Radiology Impression Brain CT 08/20/24 14:02 IMPRESSION: Chronic involutional changes of the brain. Electronically Signed: Tim White MD at 15:35 EST , Chest X-Ray 08/20/24 15:20 IMPRESSION: Findings suggestive of a CHF with bibasilar atelectasis worse on the left side. Electronically Signed: Tim White MD at 15:35 EST , Wrist X-Ray 08/20/24 16:14 IMPRESSION: Degenerative changes. Possible old avulsion injury of the ulnar styloid. Electronically Signed: José Antonio Calero DO at 16:32 EST , Abdomen/Pelvis CT 08/20/24 17:42 IMPRESSION: Hiatal hernia. Diverticulosis of the colon. There is wall thickening at the distal rectosigmoid colon with adjacent mesenteric edema/fluid and extraluminal collection suspected to the right of the rectum measuring 5.4 x 2.8 cm suggesting an abscess. [place]-ureteral with the right ureter and colovesical fistula cannot be excluded. Mild left pleural effusion. Bibasilar interstitial prominence. Electronically Signed: José Antonio Calero DO at 18:30 EST , Charges/Coding Visit Charges Inpatient E&M: 62251 Subs Hosp L2
--- NOTE | 2024-08-20 23:00 | PCM.DC.SUM ---
Providers Date of Admission: 08/20/24 Date of Discharge: 08/20/24 Primary Care Physician: Dr. Marco Segura MD Consultations 08/20/24 21:08 Consult: General Surgery Routine Consulting Provider: George Dozier Reason for Consult: abscess EMERGENT Consult: No MD Notified: Yes Date Notified: 08/20/24 Time Notified: 21:08 Method of Notification: Verbal Reason For Visit: SEPSIS 2/2 UTI Diagnosis Discharge Diagnosis (1) Toxic metabolic encephalopathy: Status: Acute Code(s): G92.8 - Other toxic encephalopathy (2) Elevated brain natriuretic peptide (BNP) level: Status: Acute Code(s): R79.89 - Other specified abnormal findings of blood chemistry (3) Elevated serum creatinine: Status: Acute Code(s): R79.89 - Other specified abnormal findings of blood chemistry (4) Leukocytosis: Status: Acute Code(s): D72.829 - Elevated white blood cell count, unspecified (5) Anemia: Status: Acute Code(s): D64.9 - Anemia, unspecified (6) Thrombocytosis: Status: Acute Code(s): D75.839 - Thrombocytosis, unspecified (7) Abnormal urinalysis: Status: Acute Code(s): R82.90 - Unspecified abnormal findings in urine (8) Septic shock: Status: Acute Code(s): A41.9 - Sepsis, unspecified organism; R65.21 - Severe sepsis with septic shock (9) Recurrent UTI: Status: Acute Code(s): N39.0 - Urinary tract infection, site not specified (10) Pelvic abscess in female: Status: Acute Code(s): N73.9 - Female pelvic inflammatory disease, unspecified Plan Septic shock secondary to urinary tract infection -Patient had refractory hypotension to fluid resuscitation at 30 cc/kg body weight (2,500) -Levophed initiated at 5 mcg/min -Right internal jugular catheter placed for administration of pressors and antibiotics under sterile procedure -Blood and urine cultures are pending -CT of the abdomen pelvis without contrast showed wall thickening at the distal rectosigmoid colon with adjacent mesenteric edema and fluid with extraluminal collection to the right of the rectum measuring 5.4 x 2.8 cm suggestive of an abscess along with potential Coloureteral/colovesical fistula, mild left pleural effusion and bibasilar interstitial prominence -Discussed case with general surgery here and they feel that is anticipated drain should be placed -No IR available here so will transfer to tertiary center--> discussed with family and they prefer [facility] -Will continue broad-spectrum antibiotics with Zosyn -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 as her only goal is to live until September 15 when her grandson gets home from the but source control needs to be pursued at this time as she is not quite ready for hospice -Critical care medicine/pulmonary medicine was consulted in case patient does not obtain a bed today Toxic/metabolic encephalopathy -Mild confusion per family however if she does seem better per family after getting to the emergency department and having some fluids -Likely related to the above -CT of the brain shows no acute findings -Monitor clinically Leukocytosis -Significant with a white count of 25.5 on presentation -Continue IV antibiotics next-cultures pending as above -Repeat CBC in a.m. Abnormal urinalysis -Highly suspect UTI -Urine looks purulent -Antibiotics as above Thrombocytosis -Highly suspect acute phase reactant -Should improve with source control and antibiotic therapy Elevated serum creatinine -Baseline is unknown -Creatinine on presentation was 1.29 -Patient was treated with IV fluids as noted above -Repeat lab in a.m. -Avoid nephrotoxins as able -With age actual creatinine clearance is quite low Hyponatremia -129 on presentation -baseline is unknown -Patient does appear to be volume depleted -No further workup at this time but if remains persistent may need to pursue further hyponatremia workup Elevated BNP -Does not appear to be in acute heart failure however bases do have crackles--> the patient remained stable on room air even after fluid administration -Suspect related to sepsis -Will check echocardiogram -Would avoid diuretics due to hypotension at this time -Bases of lungs on CT of the abdomen shows small right pleural effusion which is minimal on my review and some atelectasis/fibrosis appearing changes Recurrent UTI -See above Anemia -Documented history of anemia however baseline unclear -Current hemoglobin is 8.3 -Will monitor and expect some drop with hemodilution with aggressive IV fluid administration for volume resuscitation -Repeat CBC in a.m. GERD -Continue PPI Hyperlipidemia -Hold fenofibrate -Would likely discontinue at discharge given overall goals of care long-term Osteoarthritis -As needed Tylenol available Neuropathy -Hold gabapentin for now with renal dysfunction and altered mentation Anxiety/depression/insomnia -Continue Lexapro -Hold as needed Klonopin -Okay for as needed trazodone DVT prophylaxis -Subcu heparin Q8 CODE STATUS -DNR CCA with no intubation Findings on CT scan were discussed with Dr. Bowen (her grandson) and her son (RHONDA) and they desire transfer to [facility]. Discussed case with transfer center and awaiting callback from MICU attending--> Dr. Escobar. Images were pushed to [facility]. Critical care time greater than 36 minutes without procedures Medications at Discharge Home Medications acetaminophen 500 mg tablet 1,000 mg PO Q8H PRN PRN pain 1-5 08/20/24 bisacodyl 10 mg rectal suppository 10 mg WV DAILY PRN constipation 08/20/24 calcium 600 mg (as carbonate)-vitamin D3 5 mcg (200 unit) tablet (Calcium 600 + D(3)) 1 tab PO BID health maintenance 08/20/24 cholecalciferol (vitamin D3) 25 mcg (1,000 unit) tablet (Vitamin D3) 25 mcg PO DAILY osteoporosis 08/20/24 clonazepam 0.5 mg tablet (Klonopin) 0.5 mg PO TID PRN anxiety 08/20/24 cranberry fruit 450 mg tablet (cranberry) 450 mg PO DAILY urinary health 08/20/24 escitalopram oxalate 5 mg tablet (Lexapro) 5 mg PO DAILY 08/20/24 fenofibrate micronized 200 mg capsule 200 mg PO DAILY 08/20/24 folic acid 1 mg tablet 1 mg PO DAILY anemia 08/20/24 gabapentin 600 mg tablet 600 mg PO BID 08/20/24 nitrofurantoin monohydrate/macrocrystals 100 mg capsule (Macrobid) 100 mg PO BID UTI 08/20/24 omeprazole 20 mg capsule,delayed release 20 mg PO DAILY 08/20/24 oxycodone 5 mg tablet 5 mg PO Q8H PRN PRN mild to moderate pain 08/20/24 sennosides 8.6 mg-docusate sodium 50 mg tablet (Senna-Time S) 1 tab-cap PO BID PRN constipation 08/20/24 trazodone 50 mg tablet 100 mg PO QHS insomnia 08/20/24 Hospital Course Operations None Summary of Care Provided Minutes Spent on Discharge: 30 Hospital Course: PEGGY JO, is a 89 F who presented to the emergency department [facility] on 08/20/2024 due to altered mentation. Patient is currently a resident at [facility] where she is currently residing. She has been having issues with recurrent urinary tract infections and was just started on Macrobid a couple days prior to presentation. Today her family noted that she was having some issues talking and seemed a bit confused which is unusual for her. Typically at baseline she is alert and oriented x 3. Family reported that she is not been eating and drinking as much is typical. Daughter stated she did not have any known fevers or chills and had not had any nausea vomiting or diarrhea. Patient is a DNR CCA with no intubation. She states her goal is to live until her grandson gets home from the on September 15 and after that would consider hospice at but at this time would like to pursue as aggressive of medical therapy as her CODE STATUS allows. Her grandson is Dr. Friedman Andrés. Vital signs on presentation showed a temperature of 97.9, heart rate 69, blood pressure was initially 141/76 however after antibiotics her blood pressure dropped to 79/42, pulse ox is 98% on room air. I have no baseline labs previous for comparison. CBC showed a white count of 25.5 with a left shift having a 94.9% neutrophilia. Hemoglobin was 8.3, platelet count was 500,000, and coags showed a mildly elevated INR at 1.4, PTT of 24.7 and a PTT of 16.8. Chemistry panel showed a mild hyponatremia with a sodium of 129, creatinine was 1.29 and troponin was 14. BNP was 311.4. Urine was turbid and positive for nitrites and leuk esterase with greater than 100 white cells per high-power field and 3+ bacteria. CT of the brain showed only chronic volitional changes. Chest x-ray was suggestive of CHF or bilateral atelectasis left greater than right. At the time of admission I recommended a CT of the abdomen pelvis be pursued and this was performed stat however pending at the time of her being admitted to the intensive care unit. Patient was admitted to the intensive care unit and volume resuscitated with 30 cc/kg body weight which equated to 2.5 L. She was started on broad-spectrum antibiotics to cover gram-negative's given the concern for sepsis related to urinary tract infection. Unfortunately, her blood pressure was refractory to volume resuscitation and she required pressors. Right internal jugular central venous catheter was placed and patient was started on Levophed. Postprocedure chest x-ray shows a right central venous catheter in the area of the left atrium. Likely a bit deep however patient not having ectopy and believe this at its current location but placement was discussed with transferring facility intensive care physician. CT of the abdomen and pelvis was performed and showed diverticulosis of the colon with wall thickening at the distal rectosigmoid colon and adjacent mesenteric edema/fluid with extraluminal collection suspicious for abscess to the right of the rectum that measured 5.4 x 2.8 cm as well as findings suggestive of [place] ureteral and colovesicular fistula, mild left pleural effusion and bibasilar interstitial prominence. General surgery was consulted and I discussed the case with them. They felt that she would most likely benefit from drain placement and we do not have any interventional radiology available here to place a drain in this area. Transfer was recommended. Family desired transfer to [facility]. Transfer line was called and case was discussed with Dr. Escobar in the MICU who accepted her for transfer and bed became available on the evening of 08/20/2024. Patient was transferred in critical but stable condition. 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 Recurrent UTIs Toxic/metabolic encephalopathy Leukocytosis Thrombocytosis Elevated serum creatinine Hyponatremia Elevated BNP Recurrent UTI Anemia GERD Hyperlipidemia Osteoarthritis Neuropathy Anxiety/depression Insomnia Weight / BMI Weight Weight: 69 kg Body Mass Index (BMI) 27.8 ABG / Lab / Microbiology Data 08/20/24 16:35 08/20/24 15:05 Laboratory: Laboratory Results - last 24 hr 08/20/24 15:05: PT 16.8 H, INR 1.4, APTT 24.7, Sodium 129 L, Potassium 4.3, Chloride 99, Carbon Dioxide 23.0, Anion Gap 8, BUN 17, Creatinine 1.29 H, Estim Creat Clear Calc 27.80, Est GFR (MDRD) Af Amer 50 L, Est GFR (MDRD) Non-Af 41 L, BUN/Creatinine Ratio 13.2, Glucose 93, Lactic Acid 1.2, Calcium 8.7, Troponin I High Sens 14 08/20/24 15:50: Urine Color Brown, Urine Clarity Turbid, Urine pH 6.0, Ur Specific [place] 1.010, Urine Protein 100 H, Urine Glucose (UA) Normal, Urine Ketones 5 H, Urine Occult Blood 250 H, Urine Nitrite Positive H, Urine Bilirubin Negative, Urine Urobilinogen 1 H, Ur Leukocyte Esterase 500 H, Urine RBC 5-10 SEEN, Urine WBC >100 SEEN, Ur Squamous Epith Cells 5-10 SEEN, Ur Renal Epithelial Cell 0-5 SEEN, Urine Bacteria 3+, Urine Mucus 0 SEEN 08/20/24 16:35: WBC 25.5 H, RBC 2.92 L, Hgb 8.3 L, Hct 26.2 L, MCV 89.7, MCH 28.4, MCHC 31.7 L, RDW Std Deviation 48.0 H, RDW Coeff of [place]iffani 14.8 H, Plt Count 500 H, MPV 9.5, Immature Gran % (Auto) 0.900, Neut % (Auto) 94.9 H, Lymph % (Auto) 1.8 L, [place] % (Auto) 0.9, Eos % (Auto) 1.2, Baso % (Auto) 0.3, Absolute Neuts (auto) 24.2 H, Absolute Lymphs (auto) 0.46 L, Nucleated RBC % 0, Differential Comment , Platelet Estimate MOD INC, Hypochromasia 1+, Anisocytosis 1+, B-Natriuretic Peptide 311.4 H Microbiology: Microbiology 08/20/24 14:21 Mucosa - Nose SARS-CoV-2, Influenza & RSV (PCR) - Final Radiography Diagnostic Testing: Radiology Impression Brain CT 08/20/24 14:02 IMPRESSION: Chronic involutional changes of the brain. Electronically Signed: Tim White MD at 15:35 EST , Chest X-Ray 08/20/24 15:20 IMPRESSION: Findings suggestive of a CHF with bibasilar atelectasis worse on the left side. Electronically Signed: Tim White MD at 15:35 EST , Wrist X-Ray 08/20/24 16:14 IMPRESSION: Degenerative changes. Possible old avulsion injury of the ulnar styloid. Electronically Signed: José Antonio Calero DO at 16:32 EST , Abdomen/Pelvis CT 08/20/24 17:42 IMPRESSION: Hiatal hernia. Diverticulosis of the colon. There is wall thickening at the distal rectosigmoid colon with adjacent mesenteric edema/fluid and extraluminal collection suspected to the right of the rectum measuring 5.4 x 2.8 cm suggesting an abscess. [place]-ureteral with the right ureter and colovesical fistula cannot be excluded. Mild left pleural effusion. Bibasilar interstitial prominence. Electronically Signed: José Antonio Calero DO at 18:30 EST , D/C Instructions DC O2, CPAP, BIPAP Needs Additional Home O2 Discharge instructions: No DC home with Oxygen: No Meaningful Use Info Meaningful Use Meaningful Use Diagnoses (Choose all that apply): None applicable Ischemic Stroke Statin Dosing Therapy Reference: STATIN DOSE THERAPY REFERENCE: * Patients > 75 years receive moderate or high dose statin therapy. * Patients 75 years or YOUNGER should receive HIGH intensity statin dose unless contraindicated. You will be required to document reason for non-treatment if statin daily dose does not meet guidelines. HIGH DOSE STATIN THERAPY DAILY Atorvastatin > than or = to 40 mg Rosuvastatin > than or = to 20 mg Amlodipine + Atorvastatin > than or = to 2.5/40 mg Ezetimibe + Simvastatin 10/80 mg Simvastatin 80mg Discharge Plan Admission Admit Date/Time: 08/20/24 17:39 Primary Reason for Your Visit: Altered mental status Attending Provider: Silke Bettencourt Primary Care Provider: Marco Segura Consulting Providers: George Dozier Discharge Orders/Prescriptions Prescriptions: No Action gabapentin 600 mg tablet 600 mg PO BID fenofibrate micronized 200 mg capsule 200 mg PO DAILY clonazepam [Klonopin] 0.5 mg tablet 0.5 mg PO TID PRN (Reason: anxiety) escitalopram oxalate [Lexapro] 5 mg tablet 5 mg PO DAILY nitrofurantoin monohyd/m-cryst [Macrobid] 100 mg capsule 100 mg PO BID Patient Comments: start 08/19, end 08/26 Rx Instructions: must administer with a meal/food omeprazole 20 mg capsule,delayed release(DR/EC) 20 mg PO DAILY trazodone 50 mg tablet 100 mg PO QHS acetaminophen 500 mg tablet 1,000 mg PO Q8H PRN PRN (Reason: pain 1-5) bisacodyl 10 mg suppository 10 mg WV DAILY PRN (Reason: constipation) calcium carbonate-vitamin D3 [Calcium 600 + D(3)] 600 mg-5 mcg (200 unit) tablet 1 tab PO BID cranberry 450 mg tablet 450 mg PO DAILY Rx Instructions: administer with a meal folic acid 1 mg tablet 1 mg PO DAILY oxycodone 5 mg tablet 5 mg PO Q8H PRN PRN (Reason: mild to moderate pain) cholecalciferol (vitamin D3) [Vitamin D3] 25 mcg (1,000 unit) tablet 25 mcg PO DAILY sennosides-docusate sodium [Senna-Time S] 8.6-50 mg tablet 1 tab-cap PO BID PRN (Reason: constipation) Referrals / Follow Up: Marco Segura MD [Primary Care Provider] - Disposition Disposition (needs filled in before D/C Order can be placed): Acute Care Hospital Charges/Coding Visit Charges Inpatient E&M: 25206 Disch Hosp
[2024-08-21] VITALS: BP 126/55; PULSE 81; RESP 18; TEMP 36.8; O2SAT 97
[2024-08-21 00:15] VITALS: BP 119/59
[2024-08-21 00:30] VITALS: BP 127/61
[2024-08-21 00:45] VITALS: BP 132/60
[2024-08-21 01:00] VITALS: BP 112/49; PULSE 84; RESP 19; O2SAT 97
--- NOTE | 2024-08-21 02:33 | NURSING ---
Report given to medic from [facility]. Pt loaded onto cot, levophed switched to transport pump, running @ 15 mcg/min. Pt sent with her belongings, dentures and clothes. Report called to JUAN PABLO Hicks at [facility].
== END 2024-08-21 02:10 | disposition short-term general hospital (02) | DRG 871 ==
LOC: ED 18:37 → ICU 18:58
PROVIDERS: Admitting Provider Internal Medicine; Emergency Provider Emergency Medicine; PCP Family Medicine; Visit Provider Internal Medicine
DX: A41.9 Sepsis, unspecified organism (principal); R65.21 Severe sepsis with septic shock; G92.8 Other toxic encephalopathy; E87.1 Hypo-osmolality and hyponatremia; N39.0 Urinary tract infection, site not specified; L02.211 Cutaneous abscess of abdominal wall; Z66 Do not resuscitate; I50.9 Heart failure, unspecified; F32.A Depression, unspecified; D64.9 Anemia, unspecified; F41.9 Anxiety disorder, unspecified; E78.5 Hyperlipidemia, unspecified; K21.9 Gastro-esophageal reflux disease without esophagitis; G62.9 Polyneuropathy, unspecified; K57.30 Diverticulosis of large intestine without perforation or abscess without bleeding; M19.90 Unspecified osteoarthritis, unspecified site; D75.839 Thrombocytosis, unspecified; K44.9 Diaphragmatic hernia without obstruction or gangrene; R79.1 Abnormal coagulation profile; G47.00 Insomnia, unspecified; R79.89 Other specified abnormal findings of blood chemistry; Z79.891 Long term (current) use of opiate analgesic; N73.9 Female pelvic inflammatory disease, unspecified; M81.0 Age-related osteoporosis without current pathological fracture; Z87.440 Personal history of urinary (tract) infections; Z96.619 Presence of unspecified artificial shoulder joint; Z96.659 Presence of unspecified artificial knee joint
CPT/HCPCS: 36415; 51702; 70450; 71045; 71046; 73110; 74176; 80048; 81001; 83605; 83880; 84484; 85025; 85610; 85730; 87040; 87086; 87088; 87186; 87631; 93005; 99285; A4216; C1751; J1940